=== PATIENT | female | born 1970 | race Caucasian/White ===

== ENCOUNTER 2019-02-07 21:54 | Emergency (ER) | payer OTHER ==
[~2019-02-07] VITALS: Ht 149.9 cm; Wt 72.6 kg
[~2019-02-07 21:54] MED LIST: TRAZ100 PO; VENL75ER PO
[2019-02-07] MEDS ORDERED: TRAZ100 PO (22:44)
[2019-02-07] MEDS ORDERED: VENL37.5ER PO (22:44)
== END 2019-02-07 22:50 | disposition home or self-care (01) ==
LOC: ER 21:54
DX: F32.9 Major depressive disorder, single episode, unspecified (principal); Z76.0 Encounter for issue of repeat prescription; Z91.040 Latex allergy status; Z79.899 Other long term (current) drug therapy; F17.210 Nicotine dependence, cigarettes, uncomplicated
CPT/HCPCS: 99281

== ENCOUNTER → 2019-04-19 | Outpatient (CLI) | payer OTHER ==
[~2019-04-19] MED LIST changes: +VENL37.5ER PO
[2019-04-22 15:06] LABS: HPV 16 Negative (Negative); HPV 18 Negative (Negative); HPV OTHER HR TYPES Negative (Negative)
== END | disposition home or self-care (01) ==
LOC: LAB SRC 16:40 → LAB SHORT 16:40
PROVIDERS: Nurse Practitioner Family
DX: Z12.4 Encounter for screening for malignant neoplasm of cervix (principal)
CPT/HCPCS: 87624; G0123

== ENCOUNTER → 2021-08-21 | Outpatient (CLI) | payer OTHER ==
[2021-08-29 12:26] LABS: Stool Occult Bld Immuno 1 Negative (NEGATIVE)
== END | disposition home or self-care (01) ==
LOC: LAB SHORT 08:00
PROVIDERS: Physician Assistant
DX: Z12.11 Encounter for screening for malignant neoplasm of colon (principal)
CPT/HCPCS: 82274

== ENCOUNTER → 2024-06-28 | Outpatient (CLI) | payer OTHER ==
[2024-06-28 17:14] LABS: BASOPHILS ABSOLUTE AUTO 0.09 K/mm3 (0.00-0.23); BASOPHILS PERCENT AUTO 1 % (0-2); EOSINOPHILS ABSOLUTE AUTO 0.01 K/mm3 (0.00-0.68); EOSINOPHILS PERCENT AUTO 0 % (0-6); Hematocrit 45.3 % (33.0-51.0); Hemoglobin 15.8 g/dL (11.5-16.0); IMMATURE GRAN ABSOLUTE AUTO 0.24 K/mm3 (0.00-0.10); IMMATURE GRAN PERCENT AUTO 2 % (0-1); LYMPHOCYTES ABSOLUTE AUTO 1.75 K/mm3 (0.84-5.20); LYMPHOCYTES PERCENT AUTO 12 % (21-46); MONOCYTES ABSOLUTE AUTO 0.73 K/mm3 (0.16-1.47); MONOCYTES PERCENT AUTO 5 % (4-13); Mean Corpuscular HGB 28.1 pg (26.0-34.0); Mean Corpuscular HGB Conc 34.9 g/dL (31.5-36.5); Mean Corpuscular Volume 81 fL (80-100); Mean Platelet Volume 11.2 fL (9.1-12.4); NEUTROPHILS ABSOLUTE AUTO 12.03 K/mm3 (1.96-9.15); NEUTROPHILS PERCENT AUTO 81 % (41-73); Platelet Count 226 K/mm3 (150-400); RDW Coefficient Variation 13.2 % (11.7-14.2); RDW Standard Deviation 37.8 fL (35.1-46.3); Red Blood Cell Count 5.62 M/mm3 (3.80-5.20); White Blood Cell Count 14.85 K/mm3 (4.00-11.30)
[2024-06-28 17:27] LABS: Albumin, Blood 2.8 g/dL (3.4-5.0); Albumin/Globulin Ratio 0.6 (0.8-1.8); Bilirubin, Total 0.6 mg/dL (0.1-1.0); Bun/Creatinine Ratio 22.1 (12.0-20.0); Calcium, Blood 9.4 mg/dL (8.5-10.1); Creatinine, Blood 0.95 mg/dL (0.40-1.00); Globulin, Blood 4.4 g/dL (2.2-4.0); Potassium, Blood 3.4 mmol/L (3.5-5.5); Total Protein, Blood 7.2 g/dL (6.4-8.2)
== END | disposition home or self-care (01) ==
LOC: LAB 17:11 → LAB SHORT 17:11
PROVIDERS: Chiropractor
DX: J18.9 Pneumonia, unspecified organism (principal)
CPT/HCPCS: 80053; 85025

== ENCOUNTER → 2024-06-29 | Outpatient (CLI) | payer OTHER ==
[2024-06-29 14:04] LABS: Calcium, Blood 9.1 mg/dL (8.5-10.1); Creatinine, Blood 0.75 mg/dL (0.40-1.00); Potassium, Blood 3.2 mmol/L (3.5-5.5)
[2024-06-29 14:05] LABS: BASOPHILS ABSOLUTE AUTO 0.02 K/mm3 (0.00-0.23); BASOPHILS PERCENT AUTO 0 % (0-2); EOSINOPHILS ABSOLUTE AUTO 0.01 K/mm3 (0.00-0.68); EOSINOPHILS PERCENT AUTO 0 % (0-6); Hematocrit 41.6 % (33.0-51.0); Hemoglobin 14.5 g/dL (11.5-16.0); IMMATURE GRAN ABSOLUTE AUTO 0.13 K/mm3 (0.00-0.10); IMMATURE GRAN PERCENT AUTO 2 % (0-1); LYMPHOCYTES ABSOLUTE AUTO 2.14 K/mm3 (0.84-5.20); LYMPHOCYTES PERCENT AUTO 25 % (21-46); MONOCYTES ABSOLUTE AUTO 0.79 K/mm3 (0.16-1.47); MONOCYTES PERCENT AUTO 9 % (4-13); Mean Corpuscular HGB 28.1 pg (26.0-34.0); Mean Corpuscular HGB Conc 34.9 g/dL (31.5-36.5); Mean Corpuscular Volume 81 fL (80-100); NEUTROPHILS ABSOLUTE AUTO 5.43 K/mm3 (1.96-9.15); NEUTROPHILS PERCENT AUTO 64 % (41-73); RDW Coefficient Variation 13.2 % (11.7-14.2); RDW Standard Deviation 38.4 fL (35.1-46.3); Red Blood Cell Count 5.16 M/mm3 (3.80-5.20); White Blood Cell Count 8.52 K/mm3 (4.00-11.30)
[2024-06-29 14:13] LABS: Mean Platelet Volume 10.9 fL (9.1-12.4); Platelet Count 211 K/mm3 (150-400)
== END | disposition home or self-care (01) ==
LOC: LAB 13:52 → LAB SHORT 13:52
PROVIDERS: Chiropractor
DX: J18.9 Pneumonia, unspecified organism (principal); R06.00 Dyspnea, unspecified
CPT/HCPCS: 80048; 85025; 85379